=== PATIENT | female | born 1970 | race Caucasian/White ===

== ENCOUNTER 2024-12-31 12:12 | Inpatient (IN) | payer OTHER, SELFPAY ==
[2024-12-31 12:12] VITALS: BP 128/71; PULSE 77; RESP 14; TEMP 37.2; O2SAT 98
[2024-12-31 12:15] VITALS: BMI 52.5
[2024-12-31 12:42] VITALS: BMI 52.5
--- NOTE | 2024-12-31 12:43 | ED.VIS.LOWEX ---
HPI History of Present Illness Chief Complaint: Lower Extremity Injury Informant: patient and family Narrative Narrative: 54-year-old female states sheathing she had cellulitis on her left leg/foot. She states it started hurting maybe 5 days ago or so but in the last 1 or 2 days it has been severe pain and redness that she has noted. She has also had some drainage from a wound that split open prior to the pain started, she denies any injury. This is at the medial ankle. Pain goes longterm up her leg, she denies any fevers, chills, systemic symptoms. She also notes that she had what felt like a pimple in the back of her left neck near her hairline that she tried to squeeze and nothing came out so she had somebody also look at it may pick something off that it was either a scab or a tick but she states it did not look like an insect that they know of. She is not having any pain there now but wondered if it was related to the cellulitis on her leg. [facility] Medical History (Updated 12/31/24 @ 14:[address] Raman Retana MD) Hypothyroid Anxiety Depression DVT (deep venous thrombosis) HTN (hypertension) Home Medications Medication Instructions Recorded Last Taken Type buspirone 15 mg tablet 15 mg PO DAILY 12/31/24 Unknown History rivaroxaban 20 mg tablet (Xarelto) 20 mg PO DAILY 12/31/24 Unknown History thyroid (pork) 180 mg tablet 180 mg PO DAILY 12/31/24 Unknown History ([place] Thyroid) venlafaxine 150 mg 150 mg PO DAILY 12/31/24 Unknown History capsule,extended release 24 hr Allergy/AdvReac Type Severity Reaction Status Date / Time No Known Allergies Allergy Verified 12/31/24 12:13 Social History Smoking Status: Never smoker ROS ROS ED Constitutional Constitutional ED: Denies chills or fever(s) Eyes Eyes: Denies change in vision or diplopia ENT ENT ED: Denies rhinorrhea or sore throat Cardiovascular Cardiovascular: Denies chest pain or palpitations Respiratory/Chest Respiratory/Chest: Denies cough or dyspnea Gastrointestinal Gastrointestinal: Denies abdominal pain, diarrhea, nausea or vomiting Genitourinary Genitourinary ED: Denies dysuria or hematuria Musculoskeletal Musculoskeletal: Reports extremity pain; Denies neck pain Integumentary Reports rash and wounds; Denies Abrasions Neurologic Neurologic: Denies headache(s), paresthesias or weakness Psychiatric Psychiatric: Denies anxiety or suicidal thoughts EXAM Physical Exam Const Vital Signs: 12/31/24 12:12 12/31/24 14:12 12/31/24 14:23 Temperature 99 F 98.6 F Temperature Source Temporal Pulse Rate 77 74 74 Respiratory Rate 18 Blood Pressure 128/71 H 107/60 107/60 Blood Pressure Mean 90 75 75 Pulse Ox 98 99 99 Oxygen Delivery Method Room Air Room Air Positive well nourished, well developed and obese General Appearance ED: well developed and NAD Nutritional Appearance: obese HEENT Reports moist mucous membranes normocephalic and atraumatic Eyes PERRL and EOMs intact bilaterally Neck full ROM and supple Resp normal respiratory effort and clear to auscultation bilaterally Cardio regular rate, regular rhythm and no murmurs GI non-tender and non-distended Auscultation: normoactive bowel sounds Palpation: soft Back/Spine normal ROM and normal to inspection General Back: other FROM Extremity Extremity Narrative: Extremely tender left ankle and the distal half of the lower leg all of which does appear to be cellulitic, there are a couple of small wounds, lateral and medial distal ankle areas, the one medially is seeping some serous fluid, it is not purulent. There is no fluctuance or obvious abscess but the whole area is focally swollen. Proximal to the erythema there is no calf tenderness or palpable cords. The skin is indurated where it is erythematous. There is no subcutaneous emphysema. There is no tender inguinal lymphadenopathy. She has limited range of motion of the ankle due to pain but she is able to move it. The rest of the foot is unaffected. General Extremety ED: Yes tenderness; Negative for pulses abnormal General Extremity: Negative for pulses abnormal Neuro oriented x3, no focal motor deficits and no sensory deficits noted Sensorium / Orientation: alert Motor Exam: strength 5/5 throughout Psych mental status grossly normal and thought process normal Skin Skin Narrative: Wound with cellulitis left distal leg see above Rashes: no rashes MDM MDM MDM Narrative Medical decision making narrative: Labs show white blood count at the high end of normal, there is no bandemia, her ESR is at the high end of normal as well, and CRP is significantly elevated. X-rays of the ankle show soft tissue swelling, but no signs of bony involvement, which I would not expect if this has been going on for less than 1 week, and no sign of subcutaneous emphysema or necrotizing fasciitis which I am at a low suspicion for at this time knowing what I know. However-there is drainage from one of the wounds, and the area is very swollen, and given the possibility of there being a soft tissue collection, I recommend IV antibiotics, podiatry consult, and admission to the hospital. Patient is apprehensive about staying but amenable to this if I recommended. I discussed with podiatry and hospitalist. IV antibiotics started in the ED, vancomycin. Prior to admission, patient at this point discloses that she saw her PCP yesterday, was given IV antibiotics, she is not sure what they were, and they were trying to set her up for IV antibiotics over the weekend today being Friday, but were unable to send her to the ER to get IV antibiotics. I advised her that I recommend admission for that and evaluation of a possible abscess in her ankle since it is so swollen and the fact that she has severe pain and tenderness and is barely able to move it. Culture of the wound was already obtained despite her getting antibiotics yesterday and she states she was placed on doxycycline. Lab Data Attestation: I reviewed the patient's lab results. Labs: Laboratory Results - last 24 hr 12/31/24 12:42 WBC 10.0 RBC 5.00 Hgb 13.3 Hct 41.6 MCV 83.2 MCH 26.6 L MCHC 32.0 RDW Std Deviation 42.2 RDW Coeff of Mihai 13.9 Plt Count 233 MPV 9.8 Immature Gran % (Auto) 0.600 Neut % (Auto) 71.6 H Lymph % (Auto) 16.7 L [place] % (Auto) 9.5 Eos % (Auto) 1.0 Baso % (Auto) 0.6 Absolute Neuts (auto) 7.2 Absolute Lymphs (auto) 1.67 Nucleated RBC % 0 ESR 26 Sodium 137 Potassium 4.0 Chloride 99 Carbon Dioxide 26.3 Anion Gap 11 BUN 9 Creatinine 0.67 L Estim Creat Clear Calc 146.78 Est GFR (MDRD) Non-Af 105 BUN/Creatinine Ratio 13.3 Glucose 105 H Calcium 9.3 C-React Prot Ext Range 142.00 H Radiography Diagnostic Testing: Clinical Impression(s) from Imaging Studies Ankle X-Ray 12/31/24 13:00 IMPRESSION: No obvious radiographic evidence of osteomyelitis. However, if clinical suspicion remains high, further evaluation with 3 phase bone scan or MRI is recommended. Reading Location: [facility] Management Discussion w/another healthcare provider: Hospitalist and Acid Extractor (dr. moralez) Discharge Plan Dx/Rx/DC Orders Clinical Impression: Cellulitis of left leg, Wound infection Disposition Disposition: Acute Care Hospital [facility]
--- NOTE | 2024-12-31 13:00 | RAD_ITS ---
EXAM: XR Left Ankle Complete, 3 or More Views CLINICAL INDICATION: PAIN/INFECTION TECHNIQUE: Frontal, lateral and oblique views of the left ankle. COMPARISON: No relevant prior studies available. FINDINGS: BONES/JOINTS: No obvious radiographic evidence of osteomyelitis. However, if clinical suspicion remains high, further evaluation with 3 phase bone scan or MRI is recommended. No acute fracture. No dislocation. No erosive changes to the osseous structures. SOFT TISSUES: Soft tissue swelling. RAD/Ankle min 3 Views IMPRESSION: No obvious radiographic evidence of osteomyelitis. However, if clinical suspici on remains high, further evaluation with 3 phase bone scan or MRI is recommended. Reading Location: [facility]
[2024-12-31 13:10] LABS: Hematocrit 41.6 % (37-47); Hemoglobin 13.3 g/dL (12.0-15.0); Immature Granulocytes Count 0.060 X10^3/uL (0.0-0.0); Mean Corp Hgb Conc 32.0 g/dL (32-36); Mean Corpuscular Volume 83.2 fL (81-99); Mean Platelet Vol. 9.8 fl (6.2-12.0); NRBC Flagged by Analyzer 0 % (0-5); Platelet Count 233 K/mm3 (150-450); RBC Distribution Width CV 13.9 % (11.6-14.6); RBC Distribution Width SD 42.2 fl (35.1-43.9); Red Blood Count 5.00 M/mm3 (4.2-5.4); White Blood Count 10.0 K/mm3 (4.4-11.0)
[2024-12-31 13:39] LABS: Anion Gap 11 (5-15); BUN 9 mg/dL (4-19); BUN/Creat Ratio 13.3 RATIO (10-20); Calcium,Total 9.3 mg/dL (7.6-11.0); Carbon Dioxide 26.3 mmol/L (21.0-32.0); Chloride 99 mmol/L (98-108); Estimated Creatinine Clearance 146.78 ml/min (50-250); Glucose 105 mg/dL (70-99); Potassium 4.0 mmol/L (3.3-5.1)
[2024-12-31 14:07] LABS: CRP 142.00 mg/L (0.0-3.0)
[2024-12-31 14:12] VITALS: BP 107/60; PULSE 74; RESP 18; O2SAT 99
[2024-12-31] MEDS: Vancomycin HCl 2,000 MG in 0.9% Normal Saline (500mL Bag) 500 ML 250 MG IV (14:19)
[2024-12-31 14:23] VITALS: BP 107/60; PULSE 74; RESP 18; TEMP 37; O2SAT 99
--- NOTE | 2024-12-31 14:46 | PCM.HP.STD ---
HPI - General General Date of Admission: 12/31/24 Date of Service: 12/31/24 Chief Complaint: Left ankle and leg pain HPI Narrative IRENA ROWE, is a 54-year-old female with a history of DVT, hypothyroidism, anxiety presented [facility] ED 12/31/2024 with cellulitis on the left leg/foot. Endorse some pain for about 5 days but the last 1 or 2 days the pain has worsened and the redness was noted, also had some drainage from the wound that split open to the pain starting but denies any injury. She did see her PCP yesterday and was given IV antibiotics and was going to be set up for outpatient IV antibiotics but given it was the weekend they sent her to the ED for IV antibiotics. Patient with a temp of 99, heart rate 77 and blood pressure 128/71. Respiratory rate 14 and pulse ox 98% on room air. White blood cell count within normal limits and BMP not overtly remarkable and ESR 26 however CRP 142. Ankle x-ray with swelling but no other acute process. Given the concern for drainage from one of the wounds and not able to rule out a soft tissue collection it was recommended patient be admitted for IV antibiotics and podiatry consult. ED physician discussed with podiatry who will see patient in consult. Patient given vancomycin and hospitalist contacted for admission. Patient reports history as above, ankle/leg started hurting 5 days ago and then over the past couple of days has had increasing erythema. Did go to PCP yesterday was given antibiotics, does not think it is worsened since then but no significant improvements either. Denies any fevers at home. Only other complaint is that she has had some mouth pain for the past couple of days, has not changed in the past 12 to 24 hours, no soreness on her tongue or her throat feels it is on the inside of her lips and then they worsen the canker sore like areas. No trouble swallowing. No other acute or focal complaints. Reports good compliance with her Xarelto over the past month [facility] Medical History (Updated 12/31/24 @ 14:[address] Raman Retana MD) Anxiety Depression DVT (deep venous thrombosis) HTN (hypertension) Hypothyroid Home Medications Medication Instructions Recorded Last Taken Type buspirone 15 mg tablet 15 mg PO DAILY 12/31/24 Unknown History rivaroxaban 20 mg tablet (Xarelto) 20 mg PO DAILY 12/31/24 Unknown History thyroid (pork) 180 mg tablet 180 mg PO DAILY 12/31/24 Unknown History ([place] Thyroid) venlafaxine 150 mg 150 mg PO DAILY 12/31/24 Unknown History capsule,extended release 24 hr Allergy/AdvReac Type Severity Reaction Status Date / Time No Known Allergies Allergy Verified 12/31/24 12:13 Social History Smoking Status: Never smoker ROS ROS Narrative General: Denies fever/chills HENT: Denies headache, denies stuffy nose, denies sore throat, feels she has some pain on the inside of her lips EYES: Denies changes in vision Resp: Denies cough, denies shortness of breath Cardiac: Denies chest pain GI: Denies abdominal pain, denies changes in bowel, denies nausea/vomiting : Denies changes in urination Extremity: Pain in left ankle and lower extremity below knee MSK: Denies weakness Neuro: Denies any numbness/tingling Heme: Denies any bleeding or bruising Skin: Erythema in left lower extremity and left medial malleolus Psychiatric: No complaints voiced Vital Signs Vital Signs Vital Signs: 12/31/24 12:12 12/31/24 14:12 12/31/24 14:23 Temperature 99 F 98.6 F Temperature Source Temporal Pulse Rate 77 74 74 Respiratory Rate 14 18 18 Blood Pressure 128/71 H 107/60 107/60 Blood Pressure Mean 90 75 75 Pulse Ox 98 99 99 Oxygen Delivery Method Room Air Room Air Weight Weight: 147.7 kg Body Mass Index (BMI) 52.5 Physical Exam Narrative General: Alert, oriented, no apparent distress HEENT: Atraumatic, normocephalic, does have some little pustules on anterior lip without swelling, no active drainage from anywhere, reports pain on inside of lips but no overt lesions appreciated on exam, sublingual no acute process, tongue appears within normal limits, no erythema, swelling, lesions in back of throat or roof of mouth Eyes: Anicteric, normal conjunctiva, extraocular movements grossly intact Neck: Supple Respiratory: Clear to auscultation bilaterally, normal respiratory effort Cardiovascular: Regular rate and rhythm GI: Soft, nontender, nondistended Extremities: No pitting edema Musculoskeletal: Moving all extremities Neuro: No overt focal neurological deficits Skin: Left lower extremity with erythema below the knee down to the ankle but spares the rest of the foot, has some slight crusted area around the medial malleolus, somewhat painful diffusely without any crepitus appreciated Psych: Cooperative Results Lab / Micro Data 12/31/24 12:42 12/31/24 12:42 Labs: Laboratory Results - last 24 hr 12/31/24 12:42: WBC 10.0, RBC 5.00, Hgb 13.3, Hct 41.6, MCV 83.2, MCH 26.6 L, MCHC 32.0, RDW Std Deviation 42.2, RDW Coeff of Mihai 13.9, Plt Count 233, MPV 9.8, Immature Gran % (Auto) 0.600, Neut % (Auto) 71.6 H, Lymph % (Auto) 16.7 L, [place] % (Auto) 9.5, Eos % (Auto) 1.0, Baso % (Auto) 0.6, Absolute Neuts (auto) 7.2, Absolute Lymphs (auto) 1.67, Nucleated RBC % 0, ESR 26, Sodium 137, Potassium 4.0, Chloride 99, Carbon Dioxide 26.3, Anion Gap 11, BUN 9, Creatinine 0.67 L, Estim Creat Clear Calc 146.78, Est GFR (MDRD) Non-Af 105, BUN/Creatinine Ratio 13.3, Glucose 105 H, Calcium 9.3, C-React Prot Ext Range 142.00 H Micro: Microbiology 12/31/24 12:42 Wound - Leg, Left Gram Stain - Final Imaging Radiology Impression Ankle X-Ray 12/31/24 13:00 IMPRESSION: No obvious radiographic evidence of osteomyelitis. However, if clinical suspicion remains high, further evaluation with 3 phase bone scan or MRI is recommended. Reading Location[facility] Assessment & Plan Assessment/Plan (1) Cellulitis of left leg: PLAN: Plan # Left ankle pain and cellulitis - Elevated CRP at 142 with normal ESR, normal white blood cell count and no fever - Tender somewhat diffusely from ankle up to top of whitten with diffuse erythema as well - Reports it has not further worsened since she got antibiotics yesterday but has not yet began to improve either, still denying any systemic symptoms - Continue IV vancomycin started in the ED, patient is not diabetic and vitally stable w/ afebrile and normal white blood cell count, only lab abnormality is an elevated CRP but w/ history and findings do not necessarily think patient requires addition of Zosyn at this time. If failure to improve or worsening could consider addition -Culture was obtained in the ED - Podiatry consult - X-ray of foot only showed soft tissue swelling - Repeat CRP in a.m. -Pain control #Mouth pain -Unclear etiology, appear to have some small areas on the anterior lip that were not actively draining and reported soreness on inside of lips though did not appreciate any significant overt lesions, has no trouble swallowing and has no pain in her throat or tongue or other evidence that patient would have any impending airway compromise or emergency - Order Magic mouthwash #Hx DVT -Holding Xarelto pending podiatry evaluation in the event patient would need any potential intervention, will treat with subcu Lovenox in the meantime #Depression/anxiety -Continue home medications #Hypothyroidism -Continue home medication - Further management per PCP #Morbid obesity -BMI documented as 52.6kg/m² at time of admission -Complicates treatment, prognosis, outcomes -Recommend weight loss and lifestyle changes #DVT ppx: Lovenox subcu Cherise Koch MD Charges/Coding Visit Charges Inpatient E&M: 69724 Init Hosp L2
[2024-12-31] MEDS: HYDROcodone Bitartrate/Apap 5/325 Tablet PO (15:17)
[2024-12-31 16:05] VITALS: BP 118/44; PULSE 89; RESP 18; TEMP 36.5; O2SAT 92
[2024-12-31 16:26] VITALS: BMI 51.4
--- NOTE | 2024-12-31 16:58 | PCM.RX.CS ---
Consult Antibiotic Management Pharmacy has been consulted to manage selected antibiotic: Vancomycin Type of Intervention Type of Consult: New start Suspected Infection Suspected Infection: Skin/Soft tissue Labs Labs: Sodium 137 mmol/L (133-145) 12/31/24 12:42 Potassium 4.0 mmol/L (3.3-5.1) 12/31/24 12:42 Chloride 99 mmol/L (98-108) 12/31/24 12:42 Carbon Dioxide 26.3 mmol/L (21.0-32.0) 12/31/24 12:42 Anion Gap 11 (5-15) 12/31/24 12:42 BUN 9 mg/dL (4-19) 12/31/24 12:42 Creatinine 0.67 mg/dL (0.70-1.20) L 12/31/24 12:42 Est GFR (MDRD) Non-Af 105 (>60) 12/31/24 12:42 BUN/Creatinine Ratio 13.3 RATIO (10-20) 12/31/24 12:42 Glucose 105 mg/dL (70-99) H 12/31/24 12:42 Microbiology Microbiology: Microbiology 12/31/24 12:42 Wound - Leg, Left Gram Stain - Final Pharmacy Plan for Drug Dosing Pharmacy Plan for Drug Dosing: NEW START IV VANCOMYCIN Consulting Physician: August Indication: cellulitis Goal Trough: 10-15 SrCr: SCr 0.67 mg/dL CrCl: 146 mL/min Comments: loading dose of 2000mg given in ER 12/31 @ 1419 Vancomycin Dose: Will start 1750mg Q12 (01/01 @ 0200) and get a trough prior to 4th total dose per policy. Pending Level: 01/02/25 @ 0130 Pharmacy Service will continue to monitor and adjust dosing as required.
[2024-12-31] MEDS: Heparin Injection (Vial) 5,000 UNIT/ML VIAL 5000 UNIT SC (20:50)
[2024-12-31] MEDS: 0.9% Normal Saline (250mL Bag) 250 ML 15 ML IV (20:50)
[2024-12-31 21:31] VITALS: BP 122/87; PULSE 70; RESP 17; TEMP 36.7; O2SAT 98
[2025-01-01] MEDS: Vancomycin HCl 1,750 MG in 0.9% Normal Saline (500mL Bag) 500 ML 250 MG IV ×2 (01:11→15:20)
[2025-01-01 02:18] VITALS: BP 105/75; PULSE 52; RESP 18; TEMP 36.6; O2SAT 100
[2025-01-01] MEDS: Heparin Injection (Vial) 5,000 UNIT/ML VIAL 5000 UNIT SC ×3 (05:47→21:06)
--- NOTE | 2025-01-01 07:12 | PCM.HP.STD ---
HPI - General General Date of Admission: 12/31/24 Date of Service: 01/01/25 Chief Complaint: Left ankle and leg pain HPI Narrative IRENA ROWE, is a 54 F who presents redness swelling pain to her left lower extremity in which this occurred about a week ago she felt as though it was starting to get much worse she had bit been putting some sort of sort of spray or salve on her leg. Since then it has not gotten better she has lived with multiple wounds her leg has chronic stasis dermatitis changes to the left lower extremity she is morbidly obese she has some form of either Charcot or changes to her ankle from either surgery or coalition as seen on x-ray. Today she is seen today laying comfortably she does have pain to palpation pain to touch and is starting to feel improvement but cannot put weight on her foot. I explained to her it will take at least 48 hours of IV antibiotic therapy to see if this will improve\ Patient has history of anxiety hypertension depression obesity but does not relate of diabetes and does take care of herself at times and not sure if she sees a doctor as often as she should. [facility] Medical History (Updated 12/31/24 @ 15:43 by Mandy Fontanez) Shelby's disease Non-smoker BiPAP (biphasic positive airway pressure) dependence Hypothyroid Anxiety Depression DVT (deep venous thrombosis) HTN (hypertension) Home Medications Medication Instructions Recorded Last Taken Type buspirone 15 mg tablet 15 mg PO DAILY 12/31/24 Unknown History rivaroxaban 20 mg tablet (Xarelto) 20 mg PO DAILY 12/31/24 Unknown History thyroid (pork) 180 mg tablet 180 mg PO DAILY 12/31/24 Unknown History ([place] Thyroid) venlafaxine 150 mg 150 mg PO DAILY 12/31/24 Unknown History capsule,extended release 24 hr Allergy/AdvReac Type Severity Reaction Status Date / Time No Known Allergies Allergy Verified 12/31/24 12:13 Social History Smoking Status: Never smoker Vital Signs Vital Signs Vital Signs: 12/31/24 12:12 12/31/24 14:12 12/31/24 14:23 Temperature 99 F 98.6 F Temperature Source Temporal Pulse Rate 77 74 74 Pulse Strength Respiratory Rate 18 Blood Pressure 128/71 H 107/60 107/60 Blood Pressure Mean 90 75 75 Blood Pressure Source Blood Pressure Position Blood Pressure Location Pulse Ox 98 99 99 Oxygen Delivery Method Room Air Room Air 12/31/24 16:05 12/31/24 21:26 12/31/24 21:31 Temperature 97.7 F L 98.1 F Temperature Source Oral Oral Pulse Rate 89 70 Pulse Strength Normal (2+) Respiratory Rate 18 17 Blood Pressure 118/44 L 122/87 H Blood Pressure Mean 68 98 Blood Pressure Source Monitor Monitor Blood Pressure Position Semi-Fowlers Semi-Fowlers Blood Pressure Location Right Arm Right Arm Pulse Ox 92 98 Oxygen Delivery Method Room Air Room Air 01/01/25 02:18 Temperature 97.8 F Temperature Source Oral Pulse Rate 52 L Pulse Strength Respiratory Rate 18 Blood Pressure 105/75 Blood Pressure Mean 85 Blood Pressure Source Monitor Blood Pressure Position Semi-Fowlers Blood Pressure Location Right Arm Pulse Ox 100 Oxygen Delivery Method Room Air Weight Weight: 144.605 kg Body Mass Index (BMI) 51.4 Physical Exam Const alert, oriented x3, no apparent distress, average body habitus, no limitations, healthy appearing and well nourished HEENT normocephalic, head/scalp atraumatic, hearing grossly normal bilaterally, external ears normal, EAC's normal, TM's normal bilaterally, external nose normal, nasal mucous membranes and turbinates normal, moist oral mucous membranes, oropharynx normal, dentition normal and gingiva normal Chest inspection of chest normal, palpation of chest normal, inspection of breasts normal and palpation of breasts normal Resp normal respiratory effort, normal air movement, no retractions, no use of accessory muscles, clear to auscultation bilaterally and percussion normal Cardio regular rate, regular rhythm, S1 normal heart sound, S2 normal heart sound, no murmurs, no rub, no gallops, no clicks, no JVD, peripheral pulses 2+ throughout and diaphoretic GI normal to inspection, nondistended, normoactive bowel sounds, soft to palpation, non-tender, non-distended, hepatosplenomegaly, no masses and no bruits Extremity Extremity Narrative: The patient has palpable pedal pulses DP and PT bilateral. She does have limited range of motion of her ankle as it feels very tight it is very uncomfortable for her to move it. I did palpate the medial lateral gutters which are uncomfortable but that there is no crepitation and no crackling no symptoms of gas I do not feel as though there is an abscess it is just very much a cellulitic left lower leg. There is a small ulceration along the medial ankle that does measure 1.5 x 1.0 x 0.2 with scab formation around it but also granulation tissue. The left lateral lower leg shows chronic changes to the skin discoloration secondary to ulceration as she has chronic stasis dermatitis X-rays left ankle show moderate arthritis forming within the ankle joint but its uncertain what occurred to her the subtalar joint as it looks as though she either has a coalition or she had surgery at some point. She has indentations where might be scars as well. At this point she has had some type effusion. Therefore limiting range of motion of the subtalar joint. Ankle joint is limited would recommend another days worth of IV antibiotic therapy we will put in wound care orders. Results Lab / Micro Data Attestation: I reviewed the patient's lab results. 12/31/24 12:42 12/31/24 12:42 Labs: Laboratory Results - last 24 hr 12/31/24 12:42: WBC 10.0, RBC 5.00, Hgb 13.3, Hct 41.6, MCV 83.2, MCH 26.6 L, MCHC 32.0, RDW Std Deviation 42.2, RDW Coeff of Mihai 13.9, Plt Count 233, MPV 9.8, Immature Gran % (Auto) 0.600, Neut % (Auto) 71.6 H, Lymph % (Auto) 16.7 L, [place] % (Auto) 9.5, Eos % (Auto) 1.0, Baso % (Auto) 0.6, Absolute Neuts (auto) 7.2, Absolute Lymphs (auto) 1.67, Nucleated RBC % 0, ESR 26, Sodium 137, Potassium 4.0, Chloride 99, Carbon Dioxide 26.3, Anion Gap 11, BUN 9, Creatinine 0.67 L, Estim Creat Clear Calc 146.78, Est GFR (MDRD) Non-Af 105, BUN/Creatinine Ratio 13.3, Glucose 105 H, Calcium 9.3, C-React Prot Ext Range 142.00 H Micro: Microbiology 12/31/24 12:42 Wound - Leg, Left Gram Stain - Final Imaging Radiology Impression Ankle X-Ray 12/31/24 13:00 IMPRESSION: No obvious radiographic evidence of osteomyelitis. However, if clinical suspicion remains high, further evaluation with 3 phase bone scan or MRI is recommended. Reading [facility] Assessment & Plan Assessment/Plan (1) Wound infection: (2) Cellulitis of left leg: PLAN: I believe this point it is cellulitic I am not certain she needs an MRI or anything further unless it would be a concern but its only been about a week she has had chronic changes to her legs her ankle is quite painful would like to see what happens in 48 hours to see if the pain starts to resolve would consider injection of antibiotic therapy him not sure if she needs an MRI at this point. X-rays show osteoarthritis consider steroid injection if necessary. PLAN: Plan At this point we will wait another day to see if her pain resolves I did wrap the leg I will put in wound care orders and follow-up with her tomorrow.
[2025-01-01 07:18] LABS: Hematocrit 37.9 % (37-47); Hemoglobin 12.1 g/dL (12.0-15.0); Immature Granulocytes Count 0.050 X10^3/uL (0.0-0.0); Mean Corp Hgb Conc 31.9 g/dL (32-36); Mean Corpuscular Volume 84.4 fL (81-99); Mean Platelet Vol. 10.1 fl (6.2-12.0); NRBC Flagged by Analyzer 0 % (0-5); Platelet Count 229 K/mm3 (150-450); RBC Distribution Width CV 13.8 % (11.6-14.6); RBC Distribution Width SD 42.9 fl (35.1-43.9); Red Blood Count 4.49 M/mm3 (4.2-5.4); White Blood Count 9.0 K/mm3 (4.4-11.0)
[2025-01-01 07:34] LABS: Anion Gap 11 (5-15); BUN 10 mg/dL (4-19); BUN/Creat Ratio 16.5 RATIO (10-20); CRP 126.00 mg/L (0.0-3.0); Calcium,Total 8.7 mg/dL (7.6-11.0); Carbon Dioxide 23.7 mmol/L (21.0-32.0); Chloride 102 mmol/L (98-108); Estimated Creatinine Clearance 164.50 ml/min (50-250); Glucose 96 mg/dL (70-99); Potassium 3.8 mmol/L (3.3-5.1)
[2025-01-01 09:38] VITALS: BP 116/55; PULSE 81; RESP 15; TEMP 36.6; O2SAT 96
--- NOTE | 2025-01-01 10:08 | CASEMGMT ---
HERLINDA DUMONT Assessment: Face to Face with pt for initial transition planning/care coordination assessment. HERLINDA DUMONT introduced self and role at [facility], pt voices understanding and consents to assessment. Pt is A&O x4 and answers all questions appropriately at this time. Care providers, pharmacy, and demographics verified/updated. Admitting Dx: LLE cellulitis Strata Score: 1 PCP:Ella Specialists:Denies Preferred Pharmacy:[facility] Insurance: [employer] Prescription Benefit: no LNOK: Mellisa Pollock, sister Living Arrangements: Pt lives with father in a two story home with 2 steps to enter. Pt reports she is I in ADL/IADLs and denies concerns at home. Transportation: Pt hires drivers and will have transportation for homegoing. DME:bipap, crutches HHC/SNF: Denies hx of Pt states no concerns with going home at time of dc. Pt using FWW in hospital. Pt denies need for this at home and states she prefers to use crutches. Pt aware of local places she could purchase a walker should she change her mind. Pt states she has done wound care on herself in the past when she had open wounds and feels she can do this again at dc. Pt states no further concerns/needs. CM to follow. Advised pt to ask CM if any further questions/concerns/needs arise, voices understanding. Pt Goal: Home Plan: Home Judie PATE CM
--- NOTE | 2025-01-01 10:52 | PN.HOSP_ITS ---
Reason for Visit Chief Complaint: Left ankle and leg pain Objective Data Objective Data Vital Signs: Vital Signs Temp Pulse Resp BP Pulse Ox O2 Del Method 97.8 F 81 15 116/55 L 96 Room Air 01/01/25 09:38 01/01/25 09:38 01/01/25 09:38 01/01/25 09:38 01/01/25 09:38 01/01/25 09:38 Oxygen Delivery Method Room Air Weight: 318 lb 12.8 oz Body Mass Index (BMI) 51.4 Intake & Output: Intake and Output for Last 24 Hours 12/30/24 12/31/24 01/01/25 23:59 23:59 23:59 Intake Total 540 / 780 994.25 / 994.25 Balance 540 / 780 994.25 / 994.25 Lab / Micro Data 01/01/25 05:55 01/01/25 05:55 Labs: Laboratory Results - last 24 hr 12/31/24 12:42: WBC 10.0, RBC 5.00, Hgb 13.3, Hct 41.6, MCV 83.2, MCH 26.6 L, MCHC 32.0, RDW Std Deviation 42.2, RDW Coeff of Mihai 13.9, Plt Count 233, MPV 9.8, Immature Gran % (Auto) 0.600, Neut % (Auto) 71.6 H, Lymph % (Auto) 16.7 L, [place] % (Auto) 9.5, Eos % (Auto) 1.0, Baso % (Auto) 0.6, Absolute Neuts (auto) 7.2, Absolute Lymphs (auto) 1.67, Nucleated RBC % 0, ESR 26, Sodium 137, Potassium 4.0, Chloride 99, Carbon Dioxide 26.3, Anion Gap 11, BUN 9, Creatinine 0.67 L, Estim Creat Clear Calc 146.78, Est GFR (MDRD) Non-Af 105, BUN/Creatinine Ratio 13.3, Glucose 105 H, Calcium 9.3, C-React Prot Ext Range 142.00 H 01/01/25 05:55: WBC 9.0, RBC 4.49, Hgb 12.1, Hct 37.9, MCV 84.4, MCH 26.9 L, M CHC 31.9 L, RDW Std Deviation 42.9, RDW Coeff of Mihai 13.8, Plt Count 229, MPV 10.1, Immature Gran % (Auto) 0.600, Neut % (Auto) 62.0, Lymph % (Auto) 26.0, [place] % (Auto) 9.1, Eos % (Auto) 1.7, Baso % (Auto) 0.6, Absolute Neuts (auto) 5.6, Absolute Lymphs (auto) 2.34, Nucleated RBC % 0, Sodium 137, Potassium 3.8, Chloride 102, Carbon Dioxide 23.7, Anion Gap 11, BUN 10, Creatinine 0.59 L, Estim Creat Clear Calc 164.50, Est GFR (MDRD) Non-Af 109, BUN/Creatinine Ratio 16.5, Glucose 96, Calcium 8.7, C-React Prot Ext Range 126.00 H Micro: Microbiology 12/31/24 12:42 Wound - Leg, Left Gram Stain - Final Radiography Diagnostic Testing: Radiology Impression Ankle X-Ray 12/31/24 13:00 IMPRESSION: No obvious radiographic evidence of osteomyelitis. However, if clinical suspicion remains high, further evaluation with 3 phase bone scan or MRI is recommended. Reading Location: [facility] Physical Exam Narrative Seen and examined Patient is stated she hit her [place] leg at [place] about 3035 years ago by a pole but it healed by itself. 3 years ago she had a small bruise/ulcer which healed. She also stated she has history of bilateral venous thromboembolism in the past. This time admitted with spontaneously developing sore/nodule started on past Friday/Friday which opened up into ulcer in few days. Physical exam General: Alert, Oriented x3, Cooperative. BMI 51.5 kg/m² HEENT: Atraumatic, PERRLA, EOMI, Normocephalic. Oral: No Gingival or Mucosal Lesions/ Ulcerations Neck: Supple, No JVD, Negative Carotid Bruits Chest wall/Lungs: Air entry diminished in bilateral lung bases. No crepitation/rhonchi Cardiovascular: Regular rate and rhythm, Normal S1,S2, No M/G/R Abdomen: Bowel Sounds Present, Soft, Non Tender, Non-Distended : No dysuria. No renal angle tenderness. No suprapubic tenderness. Extremities: No edema, Capillary Refill Less than 3 Seconds Skin: Left ankle ulcer with crust slight posterior to medial malleolus covered with dressing and Tylor wrap bandage. Left leg stasis dermatitis. Musculoskeletal: No Tenderness to Palpation of Joints or Extremities. Left TELEPHONE CLAIMS REPRESENTATIVE/DPA could not be easily palpable on dressing/Tylor wrap bandage. Right peripheral pulses are normal. Neurological: Cranial nerves II-XII grossly intact, DTR 2+/4. No acute focal neurological deficit. Psych/Mental Status: Flat affect Assessment & Plan Assessment/Plan (1) Cellulitis of left leg: PLAN: Plan 54-year-old female was sent to ED by PCP for left leg cellulitis. She has been hurting her leg for 5 days but more severe for last 1 to 2 days, drainage from the wound left medial ankle that opened up prior to the pain. Denies any injury. No fever or chills. # Left ankle pain and cellulitis with ulcer - Elevated CRP at 142 with normal ESR, normal white blood cell count and no fever with tenderness chronic status dermatitis and acute diffuse erythema. Seen by wastewater treatment engineer. On IV vancomycin. The patient is not diabetic. Vancomycin covers staph and strep. If failure then will need to consider adding gram- negative antibiotic Repeat CRP 126 mild improvement. #Mouth pain -Unclear etiology, appear to have some small areas on the anterior lip that were not actively draining and reported soreness on inside of lips though did not appreciate any significant overt lesions, has no trouble swallowing and has no pain in her throat or tongue or other evidence that patient would have any impending airway compromise or emergency - On Magic mouthwash #Hx DVT -Holding Xarelto pending podiatry evaluation in the event patient would need any potential intervention, will treat with subcu heparin #Depression/anxiety -Continue home medications #Hypothyroidism -Continue home medication - Further management per PCP #Morbid obesity -BMI documented as 52.6kg/m² at time of admission -Complicates treatment, prognosis, outcomes -Recommend weight loss and lifestyle changes #DVT ppx: Subcutaneous heparin Microbiology Past 72 Hours 12/31/24 12:42 Wound - Leg, Left Gram Stain - Final Laboratory Results 12/31/24 12:42: WBC 10.0, RBC 5.00, Hgb 13.3, Hct 41.6, MCV 83.2, MCH 26.6 L, MCHC 32.0, RDW Std Deviation 42.2, RDW Coeff of Mihai 13.9, Plt Count 233, MPV 9.8, Immature Gran % (Auto) 0.600, Neut % (Auto) 71.6 H, Lymph % (Auto) 16.7 L, [place] % (Auto) 9.5, Eos % (Auto) 1.0, Baso % (Auto) 0.6, Absolute Neuts (auto) 7.2, Absolute Lymphs (auto) 1.67, Nucleated RBC % 0, ESR 26, Sodium 137, Potassium 4.0, Chloride 99, Carbon Dioxide 26.3, Anion Gap 11, BUN 9, Creatinine 0.67 L, Estim Creat Clear Calc 146.78, Est GFR (MDRD) Non-Af 105, BUN/Creatinine Ratio 13.3, Glucose 105 H, Calcium 9.3, C-React Prot Ext Range 142.00 H 01/01/25 05:55: WBC 9.0, RBC 4.49, Hgb 12.1, Hct 37.9, MCV 84.4, MCH 26.9 L, M CHC 31.9 L, RDW Std Deviation 42.9, RDW Coeff of Mihai 13.8, Plt Count 229, MPV 10.1, Immature Gran % (Auto) 0.600, Neut % (Auto) 62.0, Lymph % (Auto) 26.0, [place] % (Auto) 9.1, Eos % (Auto) 1.7, Baso % (Auto) 0.6, Absolute Neuts (auto) 5.6, Absolute Lymphs (auto) 2.34, Nucleated RBC % 0, Sodium 137, Potassium 3.8, Chloride 102, Carbon Dioxide 23.7, Anion Gap 11, BUN 10, Creatinine 0.59 L, Estim Creat Clear Calc 164.50, Est GFR (MDRD) Non-Af 109, BUN/Creatinine Ratio 16.5, Glucose 96, Calcium 8.7, C-React Prot Ext Range 126.00 H Charges/Coding Visit Charges Inpatient E&M: 53116 Subs Hosp L2
--- NOTE | 2025-01-01 12:42 | VDLE_ITS ---
Reason For Study Reason For Study: BLE Swelling RIGHT LEFT Rt GSV is dilated and NONCOMPRESSIBLE at mid and GSV is normal. proximal calf. Knee to prox thigh appear CFV is compressible, spontaneous, phasic, competent, compressible. and demonstrates normal augmentation. CFV is compressible, spontaneous, phasic, competent FV is compressible, spontaneous, phasic, competent and demonstrates normal augmentation. and demonstrates normal augmentation. FV is compressible, spontaneous, phasic, competent POP V is PARTIALLY COMPRESSIBLE with bright and demonstrates normal augmentation. intraluminal echoes noted. The vessel appears phasic, POP V is compressible, spontaneous, phasic, competent and INCOMPETENT for greater than 1.0 second. and demonstrates normal augmentation. T/P Trunk is PARTIALLY COMPRESSIBLE with bright T/P Trunk is compressible. intraluminal echoes noted. PTV is compressible. PTV is compressible. RT PerV is compressible. LT PerV is compressible. Procedure This is a venous duplex using B-mode, color flow and spectral Doppler. Exam performed in department. Limited views were obtained of patients Lt calf vessels due to intolerance to probe compressions. A preliminary report was called and/or faxed to Dr Rojas. VL/Venous Duplex US - Stuart Extrem Interpretation Summary Acute superficial vein thrombosis noted in the right great saphenous vein in th e calf. Chronic deep vein thrombosis noted in the left popliteal vein, tibioperoneal tr unk vein. Incidental reflux in the left popliteal vein. Limited study on left. Ordering Physician: Alex Rojas Referring Physician: Santa Jaramillo M.D. Performed By: Paco Garcia RVT
--- NOTE | 2025-01-01 12:42 | ART_ITS ---
Reason For Study Reason For Study: LLE Ankle Wound / Cellulitis Procedure A bilateral lower extremity continuous wave Doppler with analog waveform analysis and ankle brachial indexes. Left Segmental Pressures Left brachial= 130mmHg. Left posterior tibial artery = >254mmHg. Left dorsalis pedis artery = >254mmHg. Left digit = 109 mmHg. The left posterior tibial artery waveforms are triphasic. The left dorsalis pedis waveforms are triphasic. Right Segmental Pressures Right posterior tibial artery = >254mmHg. Right dorsalis pedis artery = >254mmHg. Right digit = 123 mmHg. The right posterior tibial artery waveforms are triphasic. The right dorsalis pedis waveforms are triphasic. Indices The right ankle brachial index by the posterior tibial artery is N/C. The right ankle brachial index by the dorsalis pedis is N/C. The right digital-brachial index is 0.95. The left ankle brachial index by the posterior tibial artery is N/C. The left ankle brachial index by the dorsalis pedis is N/C. The left digital-brachial index is 0.84. VL/Ankle Brachial Index Interpretation Summary Right ARNOLD not able to be obtained due to non-compressible vessels. TBI and Dopp ler/PVR waveforms of the right ankle normal at rest. Left ARNOLD not able to be obtained due to non-compressible vessels. TBI and Doppl er/PVR waveforms of the left ankle normal at rest. Ordering Physician: Alex Rojas Referring Physician: Santa Jaramillo M.D. Performed By: Paco Garcia RVT
[2025-01-01 14:00] VITALS: BP 109/59; PULSE 75; RESP 16; TEMP 36.6; O2SAT 96
[2025-01-01] MEDS: 0.9% Saline Lock 10 ML Syringe IV (14:16)
--- NOTE | 2025-01-01 15:26 | NURSING ---
1400 vancomycin late being hung d/t change in dosing and late coming to unit
[2025-01-01 17:58] VITALS: BP 117/58; PULSE 76; RESP 16; TEMP 36.7; O2SAT 95
[2025-01-01 21:17] VITALS: BP 124/49; PULSE 70; RESP 16; TEMP 36.8; O2SAT 99
[2025-01-01] MEDS: MELATONIN 10 MG TABLET PO (22:12)
[2025-01-02 01:56] LABS: Vancomycin, Trough Level 10.6 ug/mL (5.0-15.0)
[2025-01-02] MEDS: Vancomycin HCl 1,750 MG in 0.9% Normal Saline (500mL Bag) 500 ML 250 MG IV ×2 (02:14→14:32)
--- NOTE | 2025-01-02 02:15 | PCM.RX.CS ---
Consult Antibiotic Management Pharmacy has been consulted to manage selected antibiotic: Vancomycin Type of Intervention Type of Consult: Follow-up Suspected Infection Suspected Infection: Skin/Soft tissue Labs Labs: Sodium 137 mmol/L (133-145) 01/01/25 05:55 Potassium 3.8 mmol/L (3.3-5.1) 01/01/25 05:55 Chloride 102 mmol/L (98-108) 01/01/25 05:55 Carbon Dioxide 23.7 mmol/L (21.0-32.0) 01/01/25 05:55 Anion Gap 11 (5-15) 01/01/25 05:55 BUN 10 mg/dL (4-19) 01/01/25 05:55 Creatinine 0.59 mg/dL (0.70-1.20) L 01/01/25 05:55 Est GFR (MDRD) Non-Af 109 (>60) 01/01/25 05:55 BUN/Creatinine Ratio 16.5 RATIO (10-20) 01/01/25 05:55 Glucose 96 mg/dL (70-99) 01/01/25 05:55 Vancomycin Trough 10.6 ug/mL (5.0-15.0) 01/02/25 01:26 Microbiology Microbiology: Microbiology 12/31/24 12:42 Wound - Leg, Left Gram Stain - Final Dosing Weight Weight used for dosin kg Estimated Creatinine Clearance Estimated Creatinine Clearance: 165 Goal Trough Goal Trough: 10-15 mcg/mL Pharmacy Plan for Drug Dosing Pharmacy Plan for Drug Dosing: Vancomycin trough level of 10.6 was within the target range of 10-15. Will continue dosing at 1750mg q12h, and will draw another trough level in two days. Pharmacy Service will continue to monitor and adjust dosing as required. Follow-Up Labs Follow-Up Labs: Trough: Vancomycin Date/Time Labs Ordered Labs to be done on [date and time ordered]: 01/04/25 @0131
[2025-01-02 03:20] VITALS: BP 109/37; PULSE 73; RESP 16; TEMP 36.2; O2SAT 99
[2025-01-02] MEDS: Heparin Injection (Vial) 5,000 UNIT/ML VIAL 5000 UNIT SC (06:04)
[2025-01-02 07:59] VITALS: BP 132/52; PULSE 65; RESP 16; TEMP 36.8; O2SAT 98
[2025-01-02] MEDS: Senna/Docusate Sodium 1 Tablet 2 TABLET PO (08:04)
[2025-01-02] MEDS: 0.9% Saline Lock 10 ML Syringe IV (14:32)
[2025-01-02 15:36] VITALS: BP 124/70; PULSE 81; RESP 16; TEMP 37; O2SAT 95
--- NOTE | 2025-01-02 15:38 | PCM.PN.HOSP ---
Reason for Visit Chief Complaint: Left ankle and leg pain Objective Data Objective Data Vital Signs: Vital Signs Temp Pulse Resp BP Pulse Ox O2 Del Method 98.3 F 65 16 132/52 H 98 Room Air 01/02/25 07:59 01/02/25 07:59 01/02/25 07:59 01/02/25 07:59 01/02/25 07:59 01/02/25 07:59 Oxygen Delivery Method Room Air Weight: 318 lb 12.615 oz Body Mass Index (BMI) 51.4 Intake & Output: Intake and Output for Last 24 Hours 12/31/24 01/01/25 01/02/25 23:59 23:59 23:59 Intake Total 540 / 780 1529.25 / 1829.25 1035 / 1035 Balance 540 / 780 1529.25 / 1829.25 1035 / 1035 Lab / Micro Data 01/01/25 05:55 01/01/25 05:55 Labs: Laboratory Results - last 24 hr 01/02/25 01:26: Vancomycin Trough 10.6 Micro: Microbiology 12/31/24 12:42 Wound - Leg, Left Gram Stain - Final Physical Exam Narrative Seen and examined Patient is stated she hit her left leg at whitten about 30-35 years ago by a pole but it healed by itself. 3 years ago she had a small bruise/ulcer which healed. She also stated she has history of bilateral venous thromboembolism in the past. She had last DVT in right leg about 30 years ago or more and since then she is on Xarelto 20 mg daily. This time admitted with spontaneously developing sore/nodule started on past Friday/Friday which opened up into ulcer in few days. Physical exam General: Alert, Oriented x3, Cooperative. BMI 51.5 kg/m² HEENT: Atraumatic, PERRLA, EOMI, Normocephalic. Oral: No Gingival or Mucosal Lesions/ Ulcerations Neck: Supple, No JVD, Negative Carotid Bruits Chest wall/Lungs: Air entry diminished in bilateral lung bases. No crepitation/rhonchi Cardiovascular: Regular rate and rhythm, Normal S1,S2, No M/G/R Abdomen: Bowel Sounds Present, Soft, Non Tender, Non-Distended : No dysuria. No renal angle tenderness. No suprapubic tenderness. Extremities: No edema, Capillary Refill Less than 3 Seconds Skin: Left ankle ulcer with crust slight posterior to medial malleolus covered with dressing and Tylor wrap bandage. Left leg stasis dermatitis. Redness has improved. Musculoskeletal: No Tenderness to Palpation of Joints or Extremities. Left HEAD INSULATION BOARD SAW OPERATOR/DPA could not be easily palpable on dressing because of swelling and tenderness. Right peripheral pulses are normal. Neurological: Cranial nerves II-XII grossly intact, DTR 2+/4. No acute focal neurological deficit. Psych/Mental Status: Flat affect Assessment & Plan Assessment/Plan (1) Cellulitis of left leg: PLAN: Plan 54-year-old female was sent to ED by PCP for left leg cellulitis. She has been hurting her leg for 5 days but more severe for last 1 to 2 days, drainage from the wound left medial ankle that opened up prior to the pain. Denies any injury. No fever or chills. # Left ankle pain and cellulitis with ulcer - Elevated CRP at 142 with normal ESR, normal white blood cell count and no fever with tenderness chronic status dermatitis and acute diffuse erythema. Seen by foam molder. On IV vancomycin. The patient is not diabetic. Vancomycin covers staph and strep. If failure then will need to consider adding gram-negative antibiotic Repeat CRP 126 mild improvement. Left popliteal vein chronic DVT and right calf superficial venous thrombosis in GSV: Patient has been on Xarelto for more than 30 years. She still has chronic DVT in left popliteal vein which means either she is not adherent to Xarelto or she is resistant because DOACSs does not work effectively for morbidly obese and she is BMI 51.5 kg/m². Discussed with the [facility] and decided to start therapeutic dose of Lovenox and then start warfarin tomorrow a.m. Discontinue Xarelto and heparin subcu. Follow-up in hematology clinic for hypercoagulable disorder workup. Arterial Doppler pending. #Mouth pain -Unclear etiology, appear to have some small areas on the anterior lip that were not actively draining and reported soreness on inside of lips though did not appreciate any significant overt lesions, has no trouble swallowing and has no pain in her throat or tongue or other evidence that patient would have any impending airway compromise or emergency - On Magic mouthwash #Depression/anxiety -Continue home medications #Hypothyroidism -Continue home medication - Further management per PCP #Morbid obesity -BMI documented as 52.6kg/m² at time of admission -Complicates treatment, prognosis, outcomes -Recommend weight loss and lifestyle changes #DVT ppx: Subcutaneous heparin Microbiology Past 72 Hours 12/31/24 12:42 Wound - Leg, Left Gram Stain - Final Laboratory Results 01/02/25 01:26: Vancomycin Trough 10.6 Charges/Coding Visit Charges Inpatient E&M: 50563 Subs Hosp L2
[2025-01-02 20:55] VITALS: BP 110/59; PULSE 86; RESP 16; TEMP 36.8; O2SAT 95
[2025-01-02] MEDS: MELATONIN 10 MG TABLET PO (21:15)
[2025-01-03] MEDS: Vancomycin HCl 1,750 MG in 0.9% Normal Saline (500mL Bag) 500 ML 250 MG IV ×2 (02:38→14:23)
[2025-01-03] MEDS: 0.9% Saline Lock 10 ML Syringe IV ×2 (02:39→14:23)
[2025-01-03 02:41] VITALS: BP 118/46; PULSE 62; RESP 16; TEMP 36.2; O2SAT 95
[2025-01-03 07:09] LABS: Hematocrit 38.7 % (37-47); Hemoglobin 12.3 g/dL (12.0-15.0); Immature Granulocytes Count 0.050 X10^3/uL (0.0-0.0); Mean Corp Hgb Conc 31.8 g/dL (32-36); Mean Corpuscular Volume 84.5 fL (81-99); Mean Platelet Vol. 9.8 fl (6.2-12.0); NRBC Flagged by Analyzer 0 % (0-5); Platelet Count 259 K/mm3 (150-450); RBC Distribution Width CV 13.4 % (11.6-14.6); RBC Distribution Width SD 41.4 fl (35.1-43.9); Red Blood Count 4.58 M/mm3 (4.2-5.4); White Blood Count 7.9 K/mm3 (4.4-11.0)
--- NOTE | 2025-01-03 07:09 | PCM.PROGNOTE ---
Subjective Subjective left lower leg cellulitis seems better her pain is better, venous duplex with chronic dvt secondary to her chronic wounds, injury, seems fracture or arthritis now. wound care in place and seems improved. CrP has improved but this may still be relativly high due to other issues Objective Data Objective Data Vital Signs: Vital Signs Temp Pulse Resp BP Pulse Ox O2 Del Method 97.2 F L 62 16 118/46 L 95 Room Air 01/03/25 02:41 01/03/25 02:41 01/03/25 02:41 01/03/25 02:41 01/03/25 02:41 01/03/25 02:41 Oxygen Delivery Method Room Air Weight: 144.6 kg Body Mass Index (BMI) 51.4 Intake & Output: Intake and Output for Last 24 Hours 01/01/25 01/02/25 01/03/25 23:59 23:59 23:59 Intake Total 1529.25 / 1829.25 1870 / 1870 685 / 685 Balance 1529.25 / 1829.25 1870 / 1870 685 / 685 Lab / Micro Data 01/01/25 05:55 01/01/25 05:55 Micro: Microbiology 12/31/24 12:42 Wound - Leg, Left Gram Stain - Final Physical Exam Narrative left lower leg with decreased cellulitis and decreased edema with healign wounds and stable progression of the left lower leg. decreased pain and more movement of her lower leg is noted. consider another few days of iv consider MRI of tib fib to check for chronic infection Assessment & Plan Assessment/Plan (1) Wound infection: PLAN: continue with cellulitis treatment may consider MRI tib fib for check (2) Cellulitis of left leg: (3) Pain in left leg: PLAN: Plan elevate, and reinforce dressing prn
[2025-01-03 07:46] LABS: Anion Gap 10 (5-15); BUN 11 mg/dL (4-19); BUN/Creat Ratio 19.6 RATIO (10-20); Calcium,Total 8.7 mg/dL (7.6-11.0); Carbon Dioxide 25.3 mmol/L (21.0-32.0); Chloride 103 mmol/L (98-108); Estimated Creatinine Clearance 170.27 ml/min (50-250); Glucose 101 mg/dL (70-99); Potassium 3.8 mmol/L (3.3-5.1)
[2025-01-03 08:23] VITALS: BP 122/76; PULSE 71; RESP 16; TEMP 36.3; O2SAT 95
[2025-01-03] MEDS: Senna/Docusate Sodium 1 Tablet 2 TABLET PO (08:36)
--- NOTE | 2025-01-03 09:16 | MRI_ITS ---
PROCEDURE: LOWER EXT/NO JT/W/O 01/03/2025 REASON FOR EXAM: CELLULITIS, DEEP INFECTION TECHNIQUE: T1, T2, LOWER EXT/NO JT/W/O Multiplanar and multisequence images were obtained without IV contrast administration. COMPARISON: COMPARISON : None FINDINGS: Bone Marrow: There is a 0.8 cm subcortical cyst or developing osteochondral defect in the lateral tibial plateau. Subcortical cysts are noted in the distal tibial plateau and in the medial talar dome. There is a 1.2 x 0.5 cm Almanza's cyst. There is intramuscular edema in adjacent soft tissue edema in the distal lateral margin of the Achilles myotendinous junction. Effusion: There is a trace joint effusion at the knee. Soft Tissues: There is subcutaneous edema in the medial and lateral soft tissues, and overlying the distal Achilles, with no discrete hematoma or drainable collection. Ligaments and Tendons: There is moderate distal Achilles tendinopathy without full-thickness tear. MRI/Lower Ext/No Jt/w/o IMPRESSION: There is a 0.8 cm subcortical cyst or developing osteochondral defect in the la teral tibial plateau. Subcortical cysts are noted in the distal tibial plateau and in the medial vidhi r dome. There is a 1.2 x 0.5 cm Almanza's cyst. There is intramuscular edema in adjacent soft tissue edema in the distal latera l margin of the Achilles myotendinous junction. There is a trace joint effusion at the knee. There is subcutaneous edema in the medial and lateral soft tissues, and overlyi ng the distal Achilles, with no discrete hematoma or drainable collection. The differential includes cellulitis and venous stasi s. There is moderate distal Achilles tendinopathy without full-thickness tear. Reading [facility]
--- NOTE | 2025-01-03 09:20 | PCM.PN.HOSP ---
Reason for Visit Chief Complaint: Left ankle and leg pain Objective Data Objective Data Vital Signs: Vital Signs Temp Pulse Resp BP Pulse Ox O2 Del Method 97.3 F L 71 16 122/76 H 95 Room Air 01/03/25 08:23 01/03/25 08:23 01/03/25 08:23 01/03/25 08:23 01/03/25 08:23 01/03/25 08:23 Oxygen Delivery Method Room Air Weight: 318 lb 12.615 oz Body Mass Index (BMI) 51.4 Intake & Output: Intake and Output for Last 24 Hours 01/01/25 01/02/25 01/03/25 23:59 23:59 23:59 Intake Total 1529.25 / 1829.25 1870 / 1870 685 / 685 Balance 1529.25 / 1829.25 1870 / 1870 685 / 685 Lab / Micro Data 01/03/25 06:38 01/03/25 06:38 Labs: Laboratory Results - last 24 hr 01/03/25 06:38: WBC 7.9, RBC 4.58, Hgb 12.3, Hct 38.7, MCV 84.5, MCH 26.9 L, MCHC 31.8 L, RDW Std Deviation 41.4, RDW Coeff of Mihai 13.4, Plt Count 259, MPV 9.8, Immature Gran % (Auto) 0.600, Neut % (Auto) 60.6, Lymph % (Auto) 28.7, [place] % (Auto) 7.0, Eos % (Auto) 2.7, Baso % (Auto) 0.4, Absolute Neuts (auto) 4.8, Absolute Lymphs (auto) 2.27, Nucleated RBC % 0, Sodium 139, Potassium 3.8, Chloride 103, Carbon Dioxide 25.3, Anion Gap 10, BUN 11, Creatinine 0.57 L, Estim Creat Clear Calc 170.27, Est GFR (MDRD) Non-Af 109, BUN/Creatinine Ratio 19.6, Glucose 101 H, Calcium 8.7 Micro: Microbiology 12/31/24 12:42 Wound - Leg, Left Gram Stain - Final Physical Exam Narrative Seen and examined Left leg examined. Still significant redness with abdomen mild tenderness though slightly got better. MRI done. Patient is stated she hit her left leg at whitten about 30-35 years ago by a pole but it healed by itself. 3 years ago she had a small bruise/ulcer which healed. She also stated she has history of bilateral venous thromboembolism in the past. She had last DVT in right leg about 30 years ago or more and since then she is on Xarelto 20 mg daily. This time admitted with spontaneously developing sore/nodule started on past Friday/Friday which opened up into ulcer in few days. Physical exam General: Alert, Oriented x3, Cooperative. BMI 51.5 kg/m² HEENT: Atraumatic, PERRLA, EOMI, Normocephalic. Oral: No Gingival or Mucosal Lesions/ Ulcerations Neck: Supple, No JVD, Negative Carotid Bruits Chest wall/Lungs: Air entry diminished in bilateral lung bases. No crepitation/rhonchi Cardiovascular: Regular rate and rhythm, Normal S1,S2, No M/G/R Abdomen: Bowel Sounds Present, Soft, Non Tender, Non-Distended : No dysuria. No renal angle tenderness. No suprapubic tenderness. Extremities: No edema, Capillary Refill Less than 3 Seconds Skin: Left ankle ulcer with crust slight posterior to medial malleolus covered with dressing and Tylor wrap bandage. Left leg stasis dermatitis. Edema tenderness in retrogressed left distal leg near malleoli Musculoskeletal: No Tenderness to Palpation of Joints or Extremities. Left STRINGING MACHINE TENDER/DPA could not be easily palpable on dressing because of swelling and tenderness. Right peripheral pulses are normal. Neurological: Cranial nerves II-XII grossly intact, DTR 2+/4. No acute focal neurological deficit. Psych/Mental Status: Flat affect Assessment & Plan Assessment/Plan (1) Cellulitis of left leg: PLAN: Plan 54-year-old female was sent to ED by PCP for left leg cellulitis. She has been hurting her leg for 5 days but more severe for last 1 to 2 days, drainage from the wound left medial ankle that opened up prior to the pain. Denies any injury. No fever or chills. # Left ankle pain and cellulitis with ulcer - Elevated CRP at 142 with normal ESR, normal white blood cell count and no fever with tenderness chronic status dermatitis and acute diffuse erythema. Seen by rn internal medicine. On IV vancomycin. The patient is not diabetic. Vancomycin covers staph and strep. If failure then will need to consider adding gram-negative antibiotic Repeat CRP 126 mild improvement. 7/21: On IV vancomycin. Redness/intermittent itching with tiny red dots by nursing staff on her back. Does not seem "red man" syndrome because it is diffuse maculopapular rash. Calmoseptine skin cream and Benadryl ordered. Earlier patient wanted discharge but agreed to stay for 1 more day for IV antibiotics. Possible discharge tomorrow on Augmentin and doxycycline for 1 week. Left popliteal vein chronic DVT and right calf superficial venous thrombosis in GSV: Patient has been on Xarelto for more than 30 years. She still has chronic DVT in left popliteal vein which means either she is not adherent to Xarelto or she is resistant because DOACSs does not work effectively for morbidly obese and she is BMI 51.5 kg/m². Discussed with the [facility] and decided to start therapeutic dose of Lovenox and then start warfarin tomorrow a.m. Discontinue Xarelto and heparin subcu. Follow-up in hematology clinic for hypercoagulable disorder workup. 01/03 Arterial Doppler reviewed and bilateral TBI could not be calculated. TBI and triphasic waveform bilateral lower legs. MRI shows subcutaneous edema in medial and lateral soft tissue and overlying distal ankle is with no discrete hematoma or drainable collection. Moderate distal Achilles tendinopathy without full-thickness tear. Intramuscular edema and additional soft tissue edema distal lateral margin of the Achilles myotendinous junction. Reviewed by the rn internal medicine. No surgical plan. Follow-up with rn internal medicine after discharge #Mouth pain -Unclear etiology, appear to have some small areas on the anterior lip that were not actively draining and reported soreness on inside of lips though did not appreciate any significant overt lesions, has no trouble swallowing and has no pain in her throat or tongue or other evidence that patient would have any impending airway compromise or emergency - On Magic mouthwash 01/03: Yelling #Depression/anxiety -Continue home medications #Hypothyroidism -Continue home medication - Further management per PCP #Morbid obesity -BMI documented as 52.6kg/m² at time of admission -Complicates treatment, prognosis, outcomes -Recommend weight loss and lifestyle changes #DVT ppx: Subcutaneous heparin Discharge plan: Possible discharge tomorrow on Augmentin and doxycycline for 1 week. Follow-up podiatry Microbiology Past 72 Hours 12/31/24 12:42 Wound - Leg, Left Gram Stain - Final 12/31/24 12:42 Wound - Leg, Left Wound Culture - Final Coag Negative Staph Mixed Gram Positive Organisms Laboratory Results 01/03/25 06:38: WBC 7.9, RBC 4.58, Hgb 12.3, Hct 38.7, MCV 84.5, MCH 26.9 L, MCHC 31.8 L, RDW Std Deviation 41.4, RDW Coeff of Mihai 13.4, Plt Count 259, MPV 9.8, Immature Gran % (Auto) 0.600, Neut % (Auto) 60.6, Lymph % (Auto) 28.7, [place] % (Auto) 7.0, Eos % (Auto) 2.7, Baso % (Auto) 0.4, Absolute Neuts (auto) 4.8, Absolute Lymphs (auto) 2.27, Nucleated RBC % 0, Sodium 139, Potassium 3.8, Chloride 103, Carbon Dioxide 25.3, Anion Gap 10, BUN 11, Creatinine 0.57 L, Estim Creat Clear Calc 170.27, Est GFR (MDRD) Non-Af 109, BUN/Creatinine Ratio 19.6, Glucose 101 H, Calcium 8.7 Clinical Impression(s) from Imaging Studies Ankle X-Ray 12/31/24 13:00 IMPRESSION: No obvious radiographic evidence of osteomyelitis. However, if clinical suspicion remains high, further evaluation with 3 phase bone scan or MRI is recommended. Reading Location: [facility] Ankle Brachial Index 01/01/25 12:42 Interpretation Summary Right ARNOLD not able to be obtained due to non-compressible vessels. TBI and Doppler/PVR waveforms of the right ankle normal at rest. Left ARNOLD not able to be obtained due to non-compressible vessels. TBI and Doppler/PVR waveforms of the left ankle normal at rest. Ordering Physician: Alex Rojas Referring Physician: Santa Jaramillo M.D. Performed By: Paco Garcia RVT Venous Doppler Study 01/01/25 12:42 Interpretation Summary Acute superficial vein thrombosis noted in the right great saphenous vein in the calf. Chronic deep vein thrombosis noted in the left popliteal vein, tibioperoneal trunk vein. Incidental reflux in the left popliteal vein. Limited study on left. Ordering Physician: Alex Rojas Referring Physician: Santa Jaramillo M.D. Performed By: Paco Garcia RVT Lower Extremity MRI 01/03/25 09:16 IMPRESSION: There is a 0.8 cm subcortical cyst or developing osteochondral defect in the lateral tibial plateau. Subcortical cysts are noted in the distal tibial plateau and in the medial talar dome. There is a 1.2 x 0.5 cm Almanza's cyst. There is intramuscular edema in adjacent soft tissue edema in the distal lateral margin of the Achilles myotendinous junction. There is a trace joint effusion at the knee. There is subcutaneous edema in the medial and lateral soft tissues, and overlying the distal Achilles, with no discrete hematoma or drainable collection. The differential includes cellulitis and venous stasis. There is moderate distal Achilles tendinopathy without full-thickness tear. Charges/Coding Visit Charges Inpatient E&M: 76471 Subs Hosp L2
[2025-01-03 14:12] VITALS: BP 120/47; PULSE 74; RESP 17; TEMP 36.7; O2SAT 99
[2025-01-03] MEDS: 0.9% Normal Saline (250mL Bag) 250 ML IV (14:33)
--- NOTE | 2025-01-03 18:32 | NURSING ---
phoned down to lab to check on status of stat labs- states someone should be arriving to draw labs shortly
[2025-01-03 19:18] LABS: Prothrombin Time (Protime)PT. 13.3 SECONDS (11.7-14.9)
[2025-01-03 19:44] VITALS: BP 119/70; PULSE 75; RESP 15; TEMP 36.8; O2SAT 98
[2025-01-03 20:00] VITALS: RESP 15
[2025-01-04 02:00] VITALS: PULSE 15; RESP 16
[2025-01-04 02:16] LABS: Vancomycin, Trough Level 12.3 ug/mL (5.0-15.0)
--- NOTE | 2025-01-04 02:24 | PCM.RX.CS ---
Consult Antibiotic Management Pharmacy has been consulted to manage selected antibiotic: Vancomycin Type of Intervention Type of Consult: Follow-up Suspected Infection Suspected Infection: Skin/Soft tissue Labs Labs: Sodium 139 mmol/L (133-145) 01/03/25 06:38 Potassium 3.8 mmol/L (3.3-5.1) 01/03/25 06:38 Chloride 103 mmol/L (98-108) 01/03/25 06:38 Carbon Dioxide 25.3 mmol/L (21.0-32.0) 01/03/25 06:38 Anion Gap 10 (5-15) 01/03/25 06:38 BUN 11 mg/dL (4-19) 01/03/25 06:38 Creatinine 0.57 mg/dL (0.70-1.20) L 01/03/25 06:38 Est GFR (MDRD) Non-Af 109 (>60) 01/03/25 06:38 BUN/Creatinine Ratio 19.6 RATIO (10-20) 01/03/25 06:38 Glucose 101 mg/dL (70-99) H 01/03/25 06:38 Vancomycin Trough 12.3 ug/mL (5.0-15.0) 01/04/25 01:37 Microbiology Microbiology: Microbiology 12/31/24 12:42 Wound - Leg, Left Gram Stain - Final 12/31/24 12:42 Wound - Leg, Left Wound Culture - Final Coag Negative Staph Mixed Gram Positive Organisms Dosing Weight Weight used for dosin kg Estimated Creatinine Clearance Estimated Creatinine Clearance: 170 Goal Trough Goal Trough: 10-15 mcg/mL Pharmacy Plan for Drug Dosing Pharmacy Plan for Drug Dosing: Vancomycin trough level of 12.3, drawn 11.25hrs post-dose, was within the target range of 10-15. Will continue dosing at 1750mg q12h, and will draw another trough level in four days. Pharmacy Service will continue to monitor and adjust dosing as required. Follow-Up Labs Follow-Up Labs: Trough: Vancomycin Date/Time Labs Ordered Labs to be done on [date and time ordered]: 01/08/25 @0130
[2025-01-04 02:25] VITALS: BP 111/56; PULSE 64; RESP 15; TEMP 36.6; O2SAT 98
[2025-01-04] MEDS: Vancomycin HCl 1,750 MG in 0.9% Normal Saline (500mL Bag) 500 ML 250 MG IV (02:28)
[2025-01-04] MEDS: 0.9% Saline Lock 10 ML Syringe IV (02:28)
[2025-01-04 06:01] LABS: Hematocrit 40.5 % (37-47); Hemoglobin 12.9 g/dL (12.0-15.0); Immature Granulocytes Count 0.080 X10^3/uL (0.0-0.0); Mean Corp Hgb Conc 31.9 g/dL (32-36); Mean Corpuscular Volume 83.5 fL (81-99); Mean Platelet Vol. 10.2 fl (6.2-12.0); NRBC Flagged by Analyzer 0 % (0-5); Platelet Count 267 K/mm3 (150-450); RBC Distribution Width CV 13.3 % (11.6-14.6); RBC Distribution Width SD 40.7 fl (35.1-43.9); Red Blood Count 4.85 M/mm3 (4.2-5.4); White Blood Count 7.7 K/mm3 (4.4-11.0)
[2025-01-04 06:12] LABS: Prothrombin Time (Protime)PT. 13.7 SECONDS (11.7-14.9)
[2025-01-04 06:21] LABS: Anion Gap 11 (5-15); BUN 9 mg/dL (4-19); BUN/Creat Ratio 15.1 RATIO (10-20); Calcium,Total 8.9 mg/dL (7.6-11.0); Carbon Dioxide 24.8 mmol/L (21.0-32.0); Chloride 102 mmol/L (98-108); Estimated Creatinine Clearance 170.27 ml/min (50-250); Glucose 104 mg/dL (70-99); Potassium 4.0 mmol/L (3.3-5.1)
[2025-01-04 08:00] VITALS: PULSE 73
--- NOTE | 2025-01-04 09:25 | WOUNDNOTE ---
wound photo: left medial ankle
[2025-01-04 10:00] VITALS: BP 112/64; PULSE 73; RESP 18; TEMP 36.6; O2SAT 96
--- NOTE | 2025-01-04 11:04 | DCINST_ITS ---
Discharge Instructions DC O2, CPAP, BIPAP needs Home O2 Discharge instructions: No Dressing / Incision Discharge Activity: Return to Normal Activity Dressing / Incision Call your doctor if you observe: Fever of 101 or Higher, Shortness of breath, Dizziness, Fainting spells, Swelling in the ankles, Chest pain and Increased palpitations (irregular heartbeat) Follow Up Care Test Results: Test results from this visit will be discussed in further detail at your follow- up appointment, if applicable. Discharge Plan Admission Admit Date/Time: 12/31/24 14:46 Attending Provider: Boone Hutson Primary Care Provider: Santa Jaramillo Consulting Providers: Johnathon Drew; Cherise Koch; Alex Rojas Instructions Additional Instructions / Restrictions: elevate, ice, wbat if she can if not then be nwb left ankle follow up in one week in [address] You are switched to Coumadin because of a chronic DVT in your left lower extremity despite being on Xarelto. Therefore you were switched to Coumadin with outpatient follow-up to hematology to evaluate for any conditions that could potentially increase your risk of clotting. Follow-up with your primary care doctor within 1 week to get INR tested to monitor your Coumadin level. Discharge Orders/Prescriptions Prescriptions: New warfarin [Jantoven] 5 mg Tablet 5 mg PO DINNER 30 Days Qty: 30 0RF amoxicillin-pot clavulanate 875-125 mg tablet 1 tab PO Q12H 5 Days Qty: 10 0RF doxycycline monohydrate 100 mg capsule 100 mg PO BID Qty: 10 0RF Continued buspirone 15 mg tablet 15 mg PO DAILY venlafaxine 150 mg capsule,extended release 24hr 150 mg PO DAILY [place] Thyroid 180 mg tablet 180 mg PO DAILY Discontinued Xarelto 20 mg tablet 20 mg PO DAILY Referrals / Follow Up: Santa Jaramillo DO [Primary Care Provider] - Within 1 Week Claudia Aguilera NP, DIRECTOR OF REVENUE CYCLE MANAGEMENT-C [Med Staff - [facility]] - Within 2 Weeks Disposition Disposition (needs filled in before D/C Order can be placed): Home, Self Care
--- NOTE | 2025-01-04 11:39 | CASEMGMT ---
HERLINDA CM into pt room, pt aware she will need to get her labs drawn in a week. Pt denies any homegoing needs and is ready for dc this date.
--- NOTE | 2025-01-04 13:43 | DS.PCM_ITS ---
Providers Date of Admission: 12/31/24 Primary Care Physician: Dr. Santa Jaramillo, DO Consultations 12/31/24 16:46 Consult: Podiatry Routine Consulting Provider: Johnathon Drew Reason for Consult: Left ankle and LE cellulitis, d/w ED physician EMERGENT Consult: No MD Notified: Yes Date Notified: 12/31/24 Time Notified: 14:59 Method of Notification: ED Physician Initiated Reason For Visit: LLE CELLULITIS Diagnosis Discharge Diagnosis (1) Cellulitis of left leg: Status: Acute Code(s): L03.116 - Cellulitis of left lower limb Medications at Discharge Home Medications buspirone 15 mg tablet 15 mg PO DAILY 12/31/24 thyroid (pork) 180 mg tablet ([place] Thyroid) 180 mg PO DAILY 12/31/24 venlafaxine 150 mg capsule,extended release 24 hr 150 mg PO DAILY 12/31/24 amoxicillin 875 mg-potassium clavulanate 125 mg tablet 1 tab PO Q12H 5 days #10 tabs 01/04/25 doxycycline monohydrate 100 mg capsule 100 mg PO BID #10 caps 01/04/25 warfarin 5 mg tablet (Jantoven) 5 mg PO DINNER 30 days #30 tabs 01/04/25 Hospital Course Operations None Procedures None Summary of Care Provided Minutes Spent on Discharge: 33 Hospital Course: Per HPI: IRENA ROWE, is a 54-year-old female with a history of DVT, hypothyroidism, anxiety presented [facility] ED 12/31/2024 with cellulitis on the left leg/foot. Endorse some pain for about 5 days but the last 1 or 2 days the pain has worsened and the redness was noted, also had some drainage from the wound that split open to the pain starting but denies any injury. She did see her PCP yesterday and was given IV antibiotics and was going to be set up for outpatient IV antibiotics but given it was the weekend they sent her to the ED for IV antibiotics. Patient with a temp of 99, heart rate 77 and blood pressure 128/71. Respiratory rate 14 and pulse ox 98% on room air. White blood cell count within normal limits and BMP not overtly remarkable and ESR 26 however CRP 142. Ankle x-ray with swelling but no other acute process. Given the concern for drainage from one of the wounds and not able to rule out a soft tissue collection it was recommended patient be admitted for IV antibiotics and podiatry consult. ED physician discussed with podiatry who will see patient in consult. Patient given vancomycin and hospitalist contacted for admission. Patient reports history as above, ankle/leg started hurting 5 days ago and then over the past couple of days has had increasing erythema. Did go to PCP yesterday was given antibiotics, does not think it is worsened since then but no significant improvements either. Denies any fevers at home. Only other complaint is that she has had some mouth pain for the past couple of days, has not changed in the past 12 to 24 hours, no soreness on her tongue or her throat feels it is on the inside of her lips and then they worsen the canker sore like areas. No trouble swallowing. No other acute or focal complaints. Reports good compliance with her Xarelto over the past month Hospital Course: 1. Left ankle pain and cellulitis in the setting of chronic DVT–54-year-old female presented to the hospital with cellulitis of her left foot and leg. She has been having some mild pain and has been managed with some oxycodone while here in the hospital. She was started on broad-spectrum antibiotics and MRI did not demonstrate any area of abscess, just lower extremity edema. Plan will be to complete 10 days of antibiotics with Augmentin and doxycycline. She did have lower extremity Dopplers which demonstrated chronic left DVT, she has been on Xarelto and it was felt to either be due to resistance secondary to her BMI or intermittent compliance with her medications therefore she was transitioned to Coumadin, previous physician did discuss the case with hematology who did recommend follow-up as an outpatient. I discussed with her the plan for discharge today she expressed understanding of the risks and benefits of going home and would like to go home today. She will need to follow-up with her PCP in the next 3 to 5 days to monitor her INR and she will need to follow-up with hematology for a hypercoagulable workup. 2. Anxiety, depression, hypothyroidism, morbid obesity are all chronic medical conditions which complicate her care. Her home medications were continued where appropriate Physical Exam Narrative General: Alert, Oriented x3, Cooperative, No apparent distress HEENT: Atraumatic, PERRLA, EOMI, Normocephalic Oral: Moist Mucosa, no oral lesions Neck: Supple, No JVD Lungs: Diminished, Normal air movement, No rhonchi, No wheeze, No rales Cardiovascular: Regular rate, Regular Rhythm, Normal S1, Normal S2, No murmurs Abdomen: Soft, Non Tender, Non-Distended, No Hepato-splenomegaly Extremities: No edema, Capillary Refill Less than 3 Seconds Skin: No rashes, No breakdown, left lower extremity wrapped Musculoskeletal: No Tenderness to Palpation of Joints or Extremities Neurological: No focal neurological deficits, Motor Exam 5/5 strength throughout, Sensory exam intact to light touch and pain Psych/Mental Status: Normal Affect, Appropriate Weight / BMI Weight Weight: 318 lb 12.615 oz Body Mass Index (BMI) 51.4 ABG / Lab / Microbiology Data 01/04/25 05:21 01/04/25 05:21 Laboratory: Laboratory Results - last 24 hr 01/03/25 18:36: PT 13.3, INR 1.0 01/04/25 01:37: Vancomycin Trough 12.3 01/04/25 05:21: WBC 7.7, RBC 4.85, Hgb 12.9, Hct 40.5, MCV 83.5, MCH 26.6 L, M CHC 31.9 L, RDW Std Deviation 40.7, RDW Coeff of Mihai 13.3, Plt Count 267, MPV 10.2, Immature Gran % (Auto) 1.000 H, Neut % (Auto) 61.6, Lymph % (Auto) 25.5, [place] % (Auto) 8.0, Eos % (Auto) 3.6, Baso % (Auto) 0.3, Absolute Neuts (auto) 4.8, Absolute Lymphs (auto) 1.97, Nucleated RBC % 0, PT 13.7, INR 1.0, Sodium 138, Potassium 4.0, Chloride 102, Carbon Dioxide 24.8, Anion Gap 11, BUN 9, C reatinine 0.57 L, Estim Creat Clear Calc 170.27, Est GFR (MDRD) Non-Af 109, BUN/Creatinine Ratio 15.1, Glucose 104 H, Calcium 8.9 Microbiology: Microbiology 12/31/24 12:42 Wound - Leg, Left Gram Stain - Final 12/31/24 12:42 Wound - Leg, Left Wound Culture - Final Coag Negative Staph Mixed Gram Positive Organisms Radiography Diagnostic Testing: Radiology Impression Ankle Brachial Index 01/01/25 12:42 Interpretation Summary Right ARNOLD not able to be obtained due to non-compressible vessels. TBI and Doppler/PVR waveforms of the right ankle normal at rest. Left ARNOLD not able to be obtained due to non-compressible vessels. TBI and Doppler/PVR waveforms of the left ankle normal at rest. Ordering Physician: Alex Rojas Referring Physician: Santa Jaramillo M.D. Performed By: Paco Garcia RVT Lower Extremity MRI 01/03/25 09:16 IMPRESSION: There is a 0.8 cm subcortical cyst or developing osteochondral defect in the lateral tibial plateau. Subcortical cysts are noted in the distal tibial plateau and in the medial talar dome. There is a 1.2 x 0.5 cm Almanza's cyst. There is intramuscular edema in adjacent soft tissue edema in the distal lateral margin of the Achilles myotendinous junction. There is a trace joint effusion at the knee. There is subcutaneous edema in the medial and lateral soft tissues, and overlying the distal Achilles, with no discrete hematoma or drainable collection. The differential includes cellulitis and venous stasis. There is moderate distal Achilles tendinopathy without full-thickness tear. Reading Location: [facility] Instructions Call your doctor if you observe: Fever of 101 or Higher, Shortness of breath, Dizziness, Fainting spells, Swelling in the ankles, Chest pain and Increased palpitations (irregular heartbeat) DC O2, CPAP, BIPAP Needs Home O2 Discharge instructions: No Meaningful Use Info Meaningful Use Meaningful Use Diagnoses (Choose all that apply): None applicable Discharge Plan Admission Admit Date/Time: 12/31/24 14:46 Attending Provider: Boone Hutson Primary Care Provider: Santa Jaramillo Consulting Providers: Johnathon Drew; Cherise Koch; Alex Rojas Instructions Additional Instructions / Restrictions: elevate, ice, wbat if she can if not then be nwb left ankle follow up in one week in [address] You are switched to Coumadin because of a chronic DVT in your left lower extremity despite being on Xarelto. Therefore you were switched to Coumadin with outpatient follow-up to hematology to evaluate for any conditions that could potentially increase your risk of clotting. Follow-up with your primary care doctor within 1 week to get INR tested to monitor your Coumadin level. Discharge Orders/Prescriptions Prescriptions: New warfarin [Jantoven] 5 mg Tablet 5 mg PO DINNER 30 Days Qty: 30 0RF amoxicillin-pot clavulanate 875-125 mg tablet 1 tab PO Q12H 5 Days Qty: 10 0RF doxycycline monohydrate 100 mg capsule 100 mg PO BID Qty: 10 0RF Continued buspirone 15 mg tablet 15 mg PO DAILY venlafaxine 150 mg capsule,extended release 24hr 150 mg PO DAILY [place] Thyroid 180 mg tablet 180 mg PO DAILY Discontinued Xarelto 20 mg tablet 20 mg PO DAILY Referrals / Follow Up: Santa Jaramillo DO [Primary Care Provider] - Within 1 Week Claudia Aguilera NP, [facility] [employer] [Med Staff - Adv Practice Prof] - Within 2 Weeks Disposition Disposition (needs filled in before D/C Order can be placed): Home, Self Care Charges/Coding Visit Charges Inpatient E&M: 26589 Disch Hosp >30min
== END 2025-01-04 13:16 | disposition home or self-care (01) | DRG 603 ==
LOC: ED 13:57 → MS3 15:45
PROVIDERS: Internal Medicine; Admitting Provider Internal Medicine; Emergency Provider Emergency Medicine; PCP Internal Medicine; Visit Provider Family Medicine
DX: L03.116 Cellulitis of left lower limb (principal); I82.532 Chronic embolism and thrombosis of left popliteal vein; Z68.43 Body mass index [BMI] 50.0-59.9, adult; L97.329 Non-pressure chronic ulcer of left ankle with unspecified severity; I10 Essential (primary) hypertension; E03.9 Hypothyroidism, unspecified; F32.A Depression, unspecified; E66.01 Morbid (severe) obesity due to excess calories; F41.9 Anxiety disorder, unspecified; I87.2 Venous insufficiency (chronic) (peripheral); K13.79 Other lesions of oral mucosa; B95.7 Other staphylococcus as the cause of diseases classified elsewhere; Z79.01 Long term (current) use of anticoagulants; Z79.899 Other long term (current) drug therapy
CPT/HCPCS: 36415; 73610; 73718; 80048; 80202; 85025; 85610; 85652; 86140; 87070; 87205; 93922; 93923; 93970; 97802; 99285; A4216

== ENCOUNTER → 2024-12-31 | Outpatient (CLI) | payer SELFPAY ==
[2024-12-31 12:52] LABS: AST(SGOT) 14 U/L (<=31); Alanine Aminotransfer ALT/SGPT 19 U/L (<=34); Albumin, Serum 3.8 g/dL (3.5-5.0); Alkaline Phosphatase 73 U/L (35-104); Anion Gap 11 (5-15); BUN 9 mg/dL (4-19); BUN/Creat Ratio 12.8 RATIO (10-20); Calcium,Total 9.4 mg/dL (7.6-11.0); Carbon Dioxide 27.5 mmol/L (21.0-32.0); Chloride 100 mmol/L (98-108); Globulin 2.8 g/dL (2.2-4.2); Glucose 95 mg/dL (70-99); Potassium 4.6 mmol/L (3.3-5.1)
== END | disposition home or self-care (01) ==
LOC: LABSPEC 12:05
PROVIDERS: PCP Internal Medicine; Referring Provider Internal Medicine; Visit Provider Internal Medicine
DX: Z51.81 Encounter for therapeutic drug level monitoring (principal)
CPT/HCPCS: 80053